=== PATIENT | female | born 1950 | race Caucasian/White ===

== ENCOUNTER 2019-07-07 12:44 | Outpatient (CLI) | payer MEDICARE, SELFPAY ==
--- NOTE | 2019-07-07 12:45 | USCV_ITS ---
Amy Martines Age: 68 Gender: F : 1950 Exam Date: 07/07/2019 13:07 Ordering Phys: Queenie Garrett Technologist: Eric Cabrera Exam Location: [facility] [place] Indication: THROMBUS OF LT VERT Risk Factors: Unknown Previous Vascular Surgery: None Right Brachial BP: / Left Brachial BP: / Right Left Velocity (cm/s) Spectral Plaque Velocity (cm/s) Spectral Plaque Syst/Diast Broadening Syst/Diast Broadening 50.50/ 10.90 Prox CCA 54.50 / 12.00 47.40/ 10.90 Mid CCA 56.10 / 16.00 44.30/ 13.20 Distal CCA 61.70 / 12.00 63.60/ 15.40 Prox ICA 67.90 / 17.80 54.00/ 14.50 Mid ICA 80.40 / 18.80 77.10/ 25.10 Distal ICA 55.40 / 18.80 96.10 ECA 63.70 1.53 ICA/CCA 1.30 Antegrade Vertebral Antegrade 24.50/ 9.10 cm/s 39.50/ 11.10 cm/s Tri Subclavian Tri 72.90 71.00 CONCLUSIONS Negative bilateral carotid Doppler ultrasound. Dr. Hayde Corbett MD (Electronically Signed) Final Date: 07 July 2019 14:32 S
== END 2019-07-07 12:45 | disposition home or self-care (01) ==
LOC: RAD 12:47
PROVIDERS: Family Provider Nurse Practitioner Family; Visit Provider Nurse Practitioner Family
DX: I63.012 Cerebral infarction due to thrombosis of left vertebral artery (principal)
CPT/HCPCS: 93880

== ENCOUNTER → 2019-07-25 15:14 | Outpatient (BNVA) | payer MEDICARE, SELFPAY | PROVIDERS: Family Provider Nurse Practitioner Family; Visit Provider Nurse Practitioner | DX: R04.0 Epistaxis (principal); J01.90 Acute sinusitis, unspecified | CPT/HCPCS: 85025 ==

== ENCOUNTER → 2019-07-26 10:26 | Outpatient (BNVA) | payer MEDICARE, SELFPAY | PROVIDERS: Family Provider Nurse Practitioner Family; PCP Nurse Practitioner; Referring Provider Nurse Practitioner Family; Visit Provider Otolaryngology | DX: R04.0 Epistaxis (principal); R47.02 Dysphasia; K21.9 Gastro-esophageal reflux disease without esophagitis | CPT/HCPCS: 99203; 99214 ==

== ENCOUNTER 2019-08-10 09:49 | Outpatient (CLI) | payer MEDICARE, SELFPAY ==
--- NOTE | 2019-08-10 10:00 | CT_ITS ---
WS: [id number] CT PARANASAL SINUSES HISTORY: epistaxis TECHNIQUE: Contiguous 2.5 mm axial images obtained through the sinuses. Images are reconstructed in s agittal and coronal planes. All CT scans at [facility] use at least one of these dose opt imization techniques: automated exposure control; mA and/or kV adjustment per patient size (includes targeted exams where dose is matched to clinical indication); or iterative reconstruction. DLP: 525.65 mGy.cm COMPARISON: None available. Frontal sinuses: Very small amount of mucoperiosteal thickening in the frontal ethmoid recesses. Sphenoid sinus: Normal. Ethmoid sinuses: Normal. Maxillary sinus: Small incomplete septa along the floors of the maxillary sinuses. No air-fluid level s or soft tissue thickening. Ostiomeatal unit: Patent ostiomeatal units. There is significant deviation of the nasal septum to the LEFT. LEFT 3.7 mm bony spur from the septum . There is distortion of the middle turbinates probably due to the nasal deviation. CT/CT sinus wo con* [id number] IMPRESSION: 1. No significant sinus disease or air-fluid levels. 2. Marked deviation of the nasal septum to the LEFT with a 3.7 mm LEFT bony sp ur. 3. Patent ostiomeatal units.
== END 2019-08-10 09:50 | disposition home or self-care (01) ==
LOC: CT 09:51
PROVIDERS: Family Provider Nurse Practitioner Family; PCP Nurse Practitioner Family; Visit Provider Otolaryngology
DX: R04.0 Epistaxis (principal)
CPT/HCPCS: 70486

== ENCOUNTER → 2019-08-15 14:45 | Outpatient (BNVA) | payer MEDICARE, SELFPAY | PROVIDERS: Family Provider Nurse Practitioner Family; PCP Nurse Practitioner Family; Visit Provider Otolaryngology | DX: R04.0 Epistaxis (principal); K21.9 Gastro-esophageal reflux disease without esophagitis; R13.10 Dysphagia, unspecified | CPT/HCPCS: 99214 ==

== ENCOUNTER → 2020-04-01 14:50 | Outpatient (BNVA) | payer MEDICARE, SELFPAY | PROVIDERS: Family Provider Nurse Practitioner Family; PCP Nurse Practitioner Family; Visit Provider Surgery | DX: Z20.828 Contact with and (suspected) exposure to other viral communicable diseases (principal) | CPT/HCPCS: 87635 ==

== ENCOUNTER 2020-04-04 12:06 | Day surgery (SDC) | payer MEDICARE, SELFPAY ==
[2020-04-03 11:42] VITALS: BMI 26.5
[2020-04-04] VITALS (8 sets, daily range): BP systolic 113–151; BP diastolic 53–84; PULSE 96–103; RESP 16–20; TEMP 36.3–37.2; O2SAT 94–99
--- NOTE | 2020-04-04 12:43 | W.PM.OPSUD ---
Surgery/Procedure H&P Update DATE OF PROCEDURE: April 04, 2020 DATE H&P PERFORMED: 03/25/20 H&P UPDATE INFORMATION: No changes to prior documentation PLANNED PROCEDURE: Operation Date: 04/04/20 11:15 Proposed Procedures p Incisional Hernia Repair with mesh(Not Applicable) - Allan Baker MD
[2020-04-04] MEDS: sodium chloride 0.9% 1,000 ML 30 ML IV (12:52)
[2020-04-04 12:53] LABS: Glucose Point of Care 120 mg/dL (70-110)
--- NOTE | 2020-04-04 12:54 | ANES.PREANE2 ---
Pre-Anesthetic Assessment Pre-Anesthetic Assessment: Height/Weight: Height 1.6 m Weight 68.039 kg Temp Pulse Resp BP Pulse Ox 97.3 F L 96 20 H 151/84 96 04/04/20 12:47 04/04/20 12:47 04/04/20 12:47 04/04/20 12:47 04/04/20 12:47 Preop Diagnosis: incisional hernia Proposed Procedure: Operation Date: 04/04/20 11:15 Proposed Procedures p Incisional Hernia Repair with mesh(Not Applicable) - Allan Baker MD Familial anesthetic complications: none Was Beta Joan taken within 24 hours: N/A Last intake: Intake Last Liquid Date 04/04/20 Last Liquid Time 08:00 Last Solid Date 04/03/20 Last Solid Time 00:00 Social: Social History: No alcohol and No tobacco Exam: Pre-Anes Outpt Exam: alert, oriented x 3, clear to auscultation bilaterally and regular rate & rhythm Airway: Cervical ROM: WNL MP: 3 Dentition: Full Pulmonary: Pulmonary: COPD CV/HEM: CV/HEM: HTN and Palp GI: GI: GERD and Hiatus hernia Metabolic: Metabolic: DM Neuropsych: Neuropsych: CVA (residual LUE) Anesthetic Plan: ASA status: 3 Anesthesia: General Risk of > 500 ml blood loss (7ml/kg in children): No Meds/Allergies Current Medications: Current Medications Generic Name Dose Route Start Last Admin Trade Name Freq PRN Reason Stop Dose Admin Sodium Chloride 1,000 mls @ 30 ml s/hr 04/04/20 12:15 04/04/20 12:52 Sodium Chloride 0.9% IV 04/05/20 12:14 30 mls/hr .Q24H TOBIAS Administration PFSH Anesthesia PFSH: Medical History (Updated 08/16/19 @ 08:02 by Addison Eaton MD) Depression Diabetes Dysphagia Essential hypertension TIA (transient ischemic attack) Social History Smoking and tobacco status: never smoked Second hand smoke exposure: No Smoking risk assessment/counseling performed?: No Alcohol intake: never Desire information about alcohol rehabilitation?: No Counseling given: No Data Anesthesia Other Labs: Laboratory Results - last 48 hr 04/04/20 12:50 POC Glucose 120 Cardiac Studies: No Data to Display
--- NOTE | 2020-04-04 13:33 | PM.OP ---
Operative Report Date of procedure: April 04, 2020 Pre-op Diagnosis: incisional hernia. Post-op diagnosis: same Procedure Done: Repair of incisional hernia. Pathology: none sent Surgeon: Allan Baker Anesthesia: General Estimated blood loss (mL): 5 Complications: None. Condition: stable Disposition: PACU Procedure: The patient was brought to the operating room and was placed in a supine position on the operating room table. General endotracheal anesthesia was induced. The abdomen was prepped and draped in a sterile fashion. A combination of 1% lidocaine with 1 to 100,000 parts epinephrine and 0.5% bupivacaine was used for local anesthesia throughout the procedure for postoperative anesthesia. The patient's midline scar from just above the umbilicus to around the left side of the umbilicus was reopened using a scalpel. Cautery was used to divide the subcutaneous tissue and a hernia sac was quickly identified. This appeared to come through a fairly small defect in the fascia but then laid in every direction on top of the fascia. Eventually the hernia sac was opened to facilitate dissection and the sac was excised, revealing a defect measuring about 3 cm in diameter. Palpation from within the peritoneal cavity through the defect revealed another very small defect just above this near the midline. The fascial bridge in between the 2 defects was simply opened, creating one larger defect. The upper portion of the defect was then reclosed vertically using some interrupted sutures of 0 Prolene. The subcutaneous tissue was loosened up in every direction to allow the remaining 3 cm defect to be closed transversely using multiple simple sutures of 0 Prolene. Some sutures of 0 Vicryl were used to buttress the repair in between the Prolene sutures. The wound was irrigated with saline. The dermis was reclosed using multiple inverted interrupted sutures of 3-0 Vicryl and the skin was reapproximated using a running subcuticular suture of 3-0 Vicryl. Benzoin and Steri-Strips were placed over the incision and a sterile bandage followed. The patient was taken to the recovery area in stable condition postoperatively.
--- NOTE | 2020-04-04 14:57 | ANE.PACU2 ---
Inpatient post-anesthesia follow up: Airway intact: Yes Vital signs: Temperature 98 F Pulse Rate 97 Respiratory Rate 17 Blood Pressure 115/58 Pulse Oximetry 95 Oxygen Delivery Me thod Room Air Oxygen Flow Rate 6 Fraction of Inspir ed Oxygen Hydration adequate: Yes Nausea and vomiting: No Pain level: 2 Mental status: Baseline
[2020-04-04] MEDS: HYDROcodone-acetaminophen 5-325 mg Tablet 1 TAB PO (15:03)
== END 2020-04-04 15:40 | disposition home or self-care (01) ==
PROVIDERS: PCP Nurse Practitioner Family; Visit Provider Surgery
PROC: (CPT 49560; principal; 2020-04-04 11:15)
DX: K43.2 Incisional hernia without obstruction or gangrene (principal); M19.90 Unspecified osteoarthritis, unspecified site; I69.854 Hemiplegia and hemiparesis following other cerebrovascular disease affecting left non-dominant side; E11.9 Type 2 diabetes mellitus without complications; K21.9 Gastro-esophageal reflux disease without esophagitis; Z79.84 Long term (current) use of oral hypoglycemic drugs; Z79.82 Long term (current) use of aspirin
CPT/HCPCS: 49560; 12345; 36416; 82962; 96365; J0690; J2370; J2405; J2704; J2710; J2765; J3010; J3490; J7030

== ENCOUNTER 2020-09-03 10:49 | Outpatient (CLI) | payer MEDICARE, SELFPAY ==
--- NOTE | 2020-09-03 10:54 | MM_ITS ---
WS: [id number] SCREENING DIGITAL MAMMOGRAM WITH CAD HISTORY: SCREENING COMPARISON: 05/24/2019 and 04/07/2018 and 02/17/2017 Bilateral CC and MLO views submitted. Computer aided detection analyzed. Breast composition: There are scattered areas of fibroglandular density. There is a new slightly spic ulated nodule near 3:00 posterior depth of the LEFT breast. This nodule measures 6 mm. There is an ad ditional medial 7 mm nodule in the LEFT breast which has been stable over multiple prior years. MM/[place] [id number] IMPRESSION: BI-RADS: 0-Incomplete: Need additional imaging evaluation FOLLOW UP: Need Additional Imaging LEFT breast: Spot compression views (CC and MLO). True ML. Ultrasound to follow if abnormality persists.
== END 2020-09-03 10:50 | disposition home or self-care (01) ==
LOC: RADSHAW 10:51
PROVIDERS: PCP Nurse Practitioner Family; Visit Provider Nurse Practitioner Family
DX: Z12.31 Encounter for screening mammogram for malignant neoplasm of breast (principal); N63.25 Unspecified lump in the left breast, overlapping quadrants
CPT/HCPCS: 77067

== ENCOUNTER 2020-09-18 09:41 | Outpatient (CLI) | payer MEDICARE, SELFPAY ==
--- NOTE | 2020-09-18 09:48 | US_ITS ---
WS: [id number] LEFT DIGITAL MAMMOGRAPHY WITH CAD CLINICAL INFORMATION: ABNORMAL/INCONCLUSIVE FINDING ON IMAGING OF BREAST COMPARISON: September 03, 2020 TECHNIQUE: 4 views of the left breast were obtained. FINDINGS: Scattered fibroglandular densities of the left breast. Stable slightly spiculated nodule near the 3:0 0 position posterior depth left breast measuring 7 mm is persistent. Ultrasound is pending. ULTRASOUND BREAST LEFT TECHNIQUE: Ultrasound left breast focused area of concern. CLINICAL INFORMATION: ABNORMAL/INCONCLUSIVE FINDING ON IMAGING OF BREAST COMPARISON: None. FINDINGS: Ultrasound left breast at the 2:00 position 5 cm from the nipple. Ovoid lesion with central echogenic ity measuring 8.3 x 6.4 mm most compatible with incidental lymph node. No other suspicious abnormalit ies. Recommend return to annual screening mammography. US/US breast LT limited* [id number] IMPRESSION: BI-RADS: 2-Benign FOLLOW UP: 1 Year Follow-up Recommend return to annual screening mammography.
== END 2020-09-18 09:42 | disposition home or self-care (01) ==
LOC: RADSHAW 09:43
PROVIDERS: PCP Nurse Practitioner Family; Visit Provider Nurse Practitioner Family
DX: R92.8 Other abnormal and inconclusive findings on diagnostic imaging of breast (principal)
CPT/HCPCS: 76642; 77065

== ENCOUNTER → 2023-01-18 12:18 | Outpatient (BNVA) | payer MEDICARE, OTHER, SELFPAY | PROVIDERS: PCP Nurse Practitioner Pediatrics; Visit Provider Otolaryngology | DX: R13.10 Dysphagia, unspecified (principal); R49.0 Dysphonia; K21.9 Gastro-esophageal reflux disease without esophagitis; J34.2 Deviated nasal septum; J34.3 Hypertrophy of nasal turbinates | CPT/HCPCS: 31575; 99204 ==

== ENCOUNTER 2023-02-03 10:37 | Outpatient (CLI) | payer MEDICARE, OTHER, SELFPAY ==
--- NOTE | 2023-02-03 10:00 | FL_ITS ---
WS: [id number] Modified barium swallow, 02/03/2023 Clinical Data: Choking, feels like food gets stuck. Comparison: Esophagram, 10/18/2018 Fluoroscopy time: 1min [id number] # of spot films: Findings: The patient initiated the oral phase but showed premature spillage. Barium did collect in the vallecu la but double swallows cleared the residue. There was no aspiration or penetration. The patient swall owed the barium tablet and with water assistance propelled the tablet into the stomach FL/FL barium swallow modifd [id number] Impression: 1. Mild premature spillage during oral phase. 2. Negative for aspiration for penetration
--- NOTE | 2023-02-03 10:46 | MM_ITS ---
WS: [id number] Bilateral screening 3D tomosynthesis digital mammogram, 02/03/2023 Clinical Data: SCREENING Comparison: 09/18/2020, 09/03/2020, 05/24/2019, 04/07/2018, 02/17/2017, 12/13/2014, 12/06/2014, 05/08/2014, 03/07/2014, 03/06/2014, 02/02/2009, 06/14/2001. Findings: The breast parenchymal pattern shows heterogeneous density No spiculated masses or clustered calcific ations are seen. There are no secondary signs of carcinoma. MM/[id number] Impression: 1. Negative bilateral mammogram unchanged. 2. Recommend annual screening mammograms. BIRADS: 1-Negative FOLLOW UP: 1 Year Follow-up The CAD gun stock checker was used.
== END 2023-02-03 10:38 | disposition home or self-care (01) ==
PROVIDERS: PCP Nurse Practitioner Pediatrics; Visit Provider Otolaryngology
DX: Z12.31 Encounter for screening mammogram for malignant neoplasm of breast (principal); R13.10 Dysphagia, unspecified
CPT/HCPCS: 74230; 77063; 77067; 92611

== ENCOUNTER → 2024-01-26 12:09 | Outpatient (BNVA) | payer MEDICARE, OTHER, SELFPAY | PROVIDERS: PCP Nurse Practitioner Family; Visit Provider Physician Assistant | DX: M25.531 Pain in right wrist (principal); G56.00 Carpal tunnel syndrome, unspecified upper limb; G56.20 Lesion of ulnar nerve, unspecified upper limb; M18.11 Unilateral primary osteoarthritis of first carpometacarpal joint, right hand | CPT/HCPCS: 73110; 99203 ==

== ENCOUNTER → 2024-03-01 15:07 | Outpatient (BNVA) | payer MEDICARE, OTHER, SELFPAY | PROVIDERS: PCP Nurse Practitioner Family; Visit Provider Physician Assistant | DX: G56.01 Carpal tunnel syndrome, right upper limb (principal) | CPT/HCPCS: 99214 ==

== ENCOUNTER 2024-04-06 07:34 | Day surgery (SDC) | payer MEDICARE, OTHER, SELFPAY ==
[2024-04-06] VITALS (8 sets, daily range): BP systolic 92–147; BP diastolic 51–84; PULSE 77–93; RESP 16–18; TEMP 36.2–36.4; O2SAT 94–97
--- NOTE | 2024-04-06 07:48 | ANES.PREANE2 ---
Pre-Anesthetic Assessment Height/Weight: Height 5 ft 3 in Preop Diagnosis: Carpal tunnel Operation Date: 04/06/24 09:00 Proposed Procedures p Carpal Tunnel Release(Right) - Basil Patel DO Was Beta Jaon taken within 24 hours: N/A Was Clonidine taken within 24 hours: N/A Social No alcohol and No tobacco Exam alert, oriented x 3, clear to auscultation bilaterally and regular rate & rhythm Airway Submandibular: within normal limits Cervical ROM: within normal limits Mallampati: Class III Dentition: false Comments: Comments: Upper dentures, multiple missing bottom teeth. Denies any loose teeth Anesthetic Plan ASA status: 2 Anesthesia: MAC Other: No prior issues with anesthesia NPO since yesterday evening History of hypertension on losartan GERD on omeprazole Diabetes on glimepiride and metformin EKG ordered Able to perform ADLs Plan for MAC anesthesia with local via surgeon Medications/Allergies Home Medications Medication Instructions Recorded Confirmed Last Taken Type atorvastatin 40 mg tablet 40 mg PO DAILY 07/25/19 04/05/24 04/03/20 History celecoxib 200 mg capsule 200 mg PO DAILY 07/25/19 04/05/24 04/03/20 History citalopram 40 mg tablet 40 mg PO DAILY 07/25/19 04/05/24 04/05/24 History gabapentin 300 mg capsule 600 mg PO BEDTIME 07/25/19 04/05/24 04/03/20 History losartan 50 mg tablet 50 mg PO DAILY 07/25/19 04/05/24 04/05/24 History metformin 500 mg tablet,extended 1,000 mg PO BID 07/25/19 04/05/24 04/05/24 History release 24 hr omeprazole 20 mg capsule,delayed 20 mg PO DAILY 07/25/19 04/06/24 04/06/24 History release glimepiride 1 mg tablet 1 mg PO AC 04/03/20 04/05/24 04/05/24 History albuterol sulfate 90 mcg/actuation 1 inh inhalation Q4H 01/26/24 04/05/24 04/02/24 History breath activated powder inhaler,sensor Allergies Allergy/AdvReac Type Severity Reaction Status Date / Time propoxyphene [From Darvon] Allergy unknown Verified 03/01/24 15:23 [facility] Anesthesia Medical History Dysphagia Diabetes Depression Essential hypertension TIA (transient ischemic attack) Social History Smoking and tobacco/nicotine status: never used tobacco/nicotine Second hand smoke exposure: No Alcohol intake: never Data Anesthesia Cardiac Studies: No Data to Display
--- NOTE | 2024-04-06 07:51 | ECG_ITS ---
[facility] Test Date: 2024-04-06 Pat Name: Amy Martines Department: Room: Gender: Female Director Of Marketing: : 1950 Requested By: Nathan Rivera Order Number: [id number] Edwardo MD: Froylan Hidalgo M.D. Measurements Intervals [place] Rate: 78 P: 20 CT: 180 QRS: -13 QRSD: 87 T: 14 QT: 375 QTc: 427 Interpretive Statements SINUS RHYTHM No previous ECG available for comparison Electronically Signed On 04-06-2024 18:17:11 CDT by Froylan Hidalgo M.D. [id number]
[2024-04-06] MEDS: sodium chloride 0.9% 1,000 ML 30 ML IV (08:03)
[2024-04-06] MEDS: acetaminophen 1,000 MG/100 ML PIGGYBACK 400 MG IV (08:07)
[2024-04-06] MEDS: ketorolac 30 mg/mL INJ IVP (08:10)
[2024-04-06 08:17] LABS: Glucose Point of Care 149 mg/dL (70-110)
--- NOTE | 2024-04-06 08:52 | W.PM.OPSFHP ---
Same Day Surgery H&P Indication for Procedure/HPI DATE OF PROCEDURE: April 06, 2024 CHIEF COMPLAINT/INDICATIONFOR SURGICAL PROCEDURE: Right carpal tunnel syndrome PREOP DIAGNOSIS: right carpal tunnel syndrome PLANNED PROCEDURE: Operation Date: 04/06/24 09:00 Proposed Procedures p Carpal Tunnel Release(Right) - Basil Patel DO Medications/Allergies* Home Medications Medication Instructions Recorded Confirmed Type atorvastatin 40 mg tablet 40 mg PO DAILY 07/25/19 04/05/24 History celecoxib 200 mg capsule 200 mg PO DAILY 07/25/19 04/05/24 History citalopram 40 mg tablet 40 mg PO DAILY 07/25/19 04/05/24 History gabapentin 300 mg capsule 600 mg PO BEDTIME 07/25/19 04/05/24 History losartan 50 mg tablet 50 mg PO DAILY 07/25/19 04/05/24 History metformin 500 mg tablet,extended 1,000 mg PO BID 07/25/19 04/05/24 History release 24 hr omeprazole 20 mg capsule,delayed 20 mg PO DAILY 07/25/19 04/06/24 History release glimepiride 1 mg tablet 1 mg PO AC 04/03/20 04/05/24 History albuterol sulfate 90 mcg/actuation 1 inh inhalation Q4H 01/26/24 04/05/24 History breath activated powder inhaler,sensor Allergies/Adverse Reactions Allergy/AdvReac Type Severity Reaction Status Date / Time propoxyphene [From Darvon] Allergy unknown Verified 03/01/24 15:23 Current Medications: Generic Name Dose Route Start Last Admin Trade Name Freq PRN Reason Stop Dose Admin Sodium Chloride 1,000 mls @ 30 mls/hr 04/06/24 07:45 04/06/24 08:03 Sodium Chloride 0.9% IV 04/07/24 07:44 30 mls/hr .Q24H TOBIAS Administration Pertinent History/Comorbid Conditions* Medical History (Updated 01/26/24 @ 13:45 by VICKI Andino) Dysphagia Diabetes Depression Essential hypertension TIA (transient ischemic attack) Social History Smoking and tobacco/nicotine status: never used tobacco/nicotine Second hand smoke exposure: No Alcohol intake: never Pertinent Exam Findings alert, oriented x 3, operative site marked and procedure specific exam findings Examination today preoperatively patient has significant thenar atrophy appreciated as well as weakness as well as positive median nerve compression test at the wrist Please refer to detailed orthopedic examination on 03/01/2024: Right Hand exam-positive Tinel's and positive Phalen's test. She has some thenar atrophy and thenar muscle weakness. Full range of motion in fingers and wrist and fingers are warm and well-perfused with normal cap refill under 2 seconds. Radial pulse 2+, No intrinsic muscle weakness noted. Base of thumb tenderness and CMC grind test was positive. Recommendations Surgery/Procedure today Other Plans: Patient is here today with plan for OR today for right carpal tunnel release surgery. Patient's been seen worked up in the outpatient setting through shared decision making patient elects to proceed with surgical intervention for right carpal tunnel release. Patient understands and Zetts procedure risk benefits complication alternatives surgery and through shared decision make elects proceed with surgical invention today. All questions answered at this time. Coding Level of Care Code Acute Code for g Fwd
[2024-04-06] MEDS: lidocaine-epi 1% 20 mL INJ 5 ML INJECTION (09:05)
[2024-04-06] MEDS: ROPivacaine 0.5% SDV 30 mL 25 MG INJECTION (09:05)
[2024-04-06] MEDS: ceFAZolin 2,000 MG in sodium chloride 0.9% (plus) 50 ML 100 MG IV (09:13)
--- NOTE | 2024-04-06 09:26 | W.PM.BPON ---
Date of Procedure: 04/06/2024 Surgeon: Basil Patel DO Director Of Leadership Development(s): None Procedure(s) performed: Right carpal tunnel release Findings of the procedure(s): Patient not have right carpal tunnel syndrome underwent procedure as planned without issues or complications Estimated blood loss: 1 mL Specimen(s) removed: None Post-operative diagnosis: Right carpal tunnel syndrome
--- NOTE | 2024-04-06 09:28 | P.OP_ITS ---
Operative Report Date of procedure: April 06, 2024 Surgeon: Basil Patel DO Procedure: Preop Diagnosis: Right Carpal Tunnel Syndrome Post-op diagnosis: Same Procedure done: 1. Right carpal tunnel release Surgeon: Basil Patel DO Anesthesia: MAC (Local) Estimated blood loss: 1 mL Tourniquet time 6 minutes IV fluids: See anesthesia record Complications: None Findings: See operative report narrative Condition: stable Disposition: same day Brief History: Patient is a pleasant 73 year-old female with right carpal tunnel syndrome. Patient has been worked up in the outpatient setting findings and physical exam ination consistent with this. Patient nerve conduction studies consistent with carpal tunnel syndrome. We detailed out patient's risk benefits complication alternatives with surgical and nonsurgical treatment options. Through shared decision making, patient agrees to proceed with surgical intervention of the right carpal tunnel release . Patient understands and agrees with current plan. All questions answered. Patient elects to proceed with surgical intervention with carpal tunnel release. Procedure: Patient seen and evaluated in the preoperative holding area. Consent was reviewed and signed with patient. Correct extremity was marked. Patient was seen evaluated by the anesthesia department once cleared for surgery was brought back to the operative suite. Patient was kept on [facility] in supine position all bony prominences were well-padded patient properly secured to the bed. Right upper extremity was then placed onto an armboard. A nonsterile tourniquet was applied to the RIght upper arm. Patient underwent anesthesia per the anesthesia department. Patient's Right upper extremity was then prepped and draped in standard orthopedic fashion. Final timeout performed. Patient received appropriate preoperative antibiotics. Under sterile aseptic technique patient received local anesthesia over the preplanned carpal tunnel incision site. Esmarch was used to exsanguinate the Right upper extremity and tourniquet was insufflated to 250 mmHg. A standard mini open Right carpal tunnel incision was made. Starting distally at Murillo's cardinal line in line with the fourth ray extending proximally distal to the wrist crease centered over the carpal tunnel. Sharp scalpel incision was made through skin and subcutaneous tissue. Self-retaining retractor was placed and the palmar fascia was identified. This was then split longitudinally and direct visualization of the transverse carpal ligament was then made. I then utilizing scalpel feathered through the transverse carpal ligament until I entered the floor of the transverse carpal tunnel ligament into the carpal tunnel. Next I switched to dissection scissors and completed my release of the transverse carpal ligament distally with care to protect the recurrent motor branch. I completely released into the palmar fat and until no entrapment was noted distally. Care was made to protect the superficial palmar arch during my distal dissection. Next I utilized a nasal speculum placed on top of the transverse carpal ligament and utilize this to retract the subcutaneous fat and tissue and under direct loupe magnification was able to identify the transverse carpal ligament. Next I then protected the contents of the carpal tunnel and subsequently utilizing dissection scissors under loupe magnification completely released the transverse carpal ligament proximally into the antebrachial fascia. Care was made to protect the palmar cutaneous branch by keeping my scissors curved ulnarly. Once completely released, I then placed my [place] and had appropriate decompression of the carpal tunnel proximally as well as distally. I then inspected the contents of the carpal tunnel which showed an hourglass shape of the median nerve showing its compression. No masses were noted. Tendons appeared healthy. Wound was then thoroughly irrigated. Tourniquet deflated. Hemostasis satisfactory with bipolar electrocautery. I then closed the incision with interrupted nylon stitches. Xeroform 4 x 4's and a bulky soft dressing was applied. Patient was then awakened from anesthesia and taken to PACU in stable condition. Patient tolerated procedure without complications. Disposition: Patient taken to PACU in stable condition recovering well. Dressing clean dry and intact. Patient will receive appropriate discharge instructions as well as pain medication postoperatively. Patient to follow-up with me in the office in 2 weeks. They understand they may be weightbearing as tolerated to the right hand. Patient should keep incision clean dry and intact. Patient understands if any questions or concerns may contact the office.
--- NOTE | 2024-04-06 10:45 | ANE.PACU2 ---
Inpatient post-anesthesia follow up: Airway intact: Yes Vital signs: Temperature 97.3 F Pulse Rate 86 Respiratory Rate 18 Blood Pressure 147/77 Pulse Oximetry 94 Oxygen Delivery Me thod Room Air Oxygen Flow Rate 6 Fraction of Inspir ed Oxygen Hydration adequate: Yes Nausea and vomiting: No Pain level: 1 Mental status: Baseline
== END 2024-04-06 10:45 | disposition home or self-care (01) ==
PROVIDERS: PCP Nurse Practitioner Family; Visit Provider Student in an Organized Health Care Education/Training Program
PROC: (CPT 64721; principal; 2024-04-06 09:00)
DX: G56.01 Carpal tunnel syndrome, right upper limb (principal); Z79.84 Long term (current) use of oral hypoglycemic drugs; I10 Essential (primary) hypertension; F32.A Depression, unspecified; E11.9 Type 2 diabetes mellitus without complications; Z86.73 Personal history of transient ischemic attack (TIA), and cerebral infarction without residual deficits; K21.9 Gastro-esophageal reflux disease without esophagitis
CPT/HCPCS: 64721; 36416; 82962; 93005; J0131; J0690; J1100; J1885; J2405; J2704; J2795; J7030

== ENCOUNTER → 2024-04-20 13:23 | Outpatient (BNVA) | payer MEDICARE, OTHER, SELFPAY | PROVIDERS: PCP Nurse Practitioner Family; Visit Provider Physician Assistant | DX: Z98.890 Other specified postprocedural states (principal) | CPT/HCPCS: 99024 ==

== ENCOUNTER → 2024-11-03 08:56 | Outpatient (BNVA) | payer MEDICARE, OTHER, SELFPAY | PROVIDERS: PCP Nurse Practitioner Family; Visit Provider Physician Assistant | DX: M25.512 Pain in left shoulder (principal); M75.42 Impingement syndrome of left shoulder | CPT/HCPCS: 20610; 73030; 99213; J3301; J9999 ==

== ENCOUNTER → 2025-02-16 10:42 | Outpatient (BNVA) | payer MEDICARE, OTHER, SELFPAY | PROVIDERS: PCP Nurse Practitioner Family; Visit Provider Physician Assistant | DX: M75.42 Impingement syndrome of left shoulder (principal) | CPT/HCPCS: 20610; 99213; J3301; J9999 ==